=== PATIENT | female | born 1990 | race Two or more races ===

== ENCOUNTER 2016-11-27 17:10 | Emergency (ER) | payer SELFPAY ==
[~2016-11-27] VITALS: Ht 160 cm; Wt 46.0 kg
[2016-11-27 18:05] VITALS: BP 99/67
== END 2016-11-27 21:15 | disposition left against medical advice (07) ==
LOC: ER 18:39
DX: Z53.21 Procedure and treatment not carried out due to patient leaving prior to being seen by health care provider (principal)